=== PATIENT | female | born 1980 | race African-American/Black ===

== ENCOUNTER 2024-04-23 08:37 | Emergency (ER) | payer BC ==
[~2024-04-23] VITALS: Ht 172.7 cm; Wt 68.0 kg
[2024-04-23 08:50] VITALS: O2SAT 100
[2024-04-23] MEDS: LORAZEPAM 0.5MG TABLET PO ONE (09:18)
[2024-04-23 11:01] VITALS: BP 127/86; PULSE 78; RESP 12; TEMP 98.3
== END 2024-04-23 11:02 | disposition home or self-care (01) ==
LOC: ER 08:37
DX: F41.9 Anxiety disorder, unspecified (principal); J45.909 Unspecified asthma, uncomplicated; G43.909 Migraine, unspecified, not intractable, without status migrainosus; Z86.73 Personal history of transient ischemic attack (TIA), and cerebral infarction without residual deficits
CPT/HCPCS: 93005; 99283